=== PATIENT | male | born 1960 | race Two or more races ===

== ENCOUNTER 2018-12-06 10:55 | Emergency (ER) | payer OTHER ==
[2018-12-06] MEDS ORDERED: KETOROLAC TROMETHAMINE INJ/PF 30 MG/1 ML SDV IV ONE (11:29)
--- NOTE | 2018-12-06 11:32 | ER Document Report ---
ED Medical Screen (RME) - General Chief Complaint: Abdominal Pain Stated Complaint: ABDOMINAL PAIN Time Seen by Provider: 12/06/18 11:23 Notes: Patient says that he is having severe pain in the right lower quadrant of his abdomen. He has been having this pain for about 5 years, since he had a hernia repair and mesh implanted. He says that he was told that the surgery was "botched" and that the mesh was pressing on a nerve. He is currently in pain management in [place], and is here without any medications for pain. He says this pain has been going on this time for about a week. Points to the right lower quadrant. Has had a little bit of vomiting a little bit of diarrhea. No blood in any of that. Patient says he is having some shortness of breath. Denies any fever. PMH: Hypertension, CHF, anxiety, depression, neuropathy, cigarette smoker. TRAVEL OUTSIDE OF THE U[place] IN LAST 30 DAYS: No - Related Data Allergies/Adverse Reactions: metformin Allergy (Verified 12/06/18 11:03) Penicillins Allergy (Verified 12/06/18 11:03) Past Medical History - Past Medical History Cardiac Medical History: Reports: Hx Congestive Heart Failure, Hx Hypertension Pulmonary Medical History: Reports: Hx COPD Renal/ Medical History: Denies: Hx Peritoneal Dialysis GI Medical History: Reports: Hx Gastroesophageal Reflux Disease Psychiatric Medical History: Reports: Hx Depression Past Surgical History: Reports: Hx Abdominal Surgery - hernia, Hx Cholecystectomy Physical Exam - Vital signs Vitals: Temp Pulse Resp BP Pulse Ox 98.3 F 67 20 133/91 H 100 12/06/18 11:05 12/06/18 11:05 12/06/18 11:05 12/06/18 11:05 12/06/18 11:05 Course - Vital Signs Vital signs: Temp Pulse Resp BP Pulse Ox 98.3 F 67 20 133/91 H 100 12/06/18 11:05 12/06/18 11:05 12/06/18 11:05 12/06/18 11:05 12/06/18 11:05
[2018-12-06 12:25] LABS: APPEARANCE,URINE CLEAR; BILIRUBIN,URINE NEGATIVE (NEGATIVE); COLOR,URINE YELLOW; GLUCOSE, URINE NEGATIVE (NEGATIVE); KETONES,URINE NEGATIVE (NEGATIVE); LEUKOCYTE ESTERASE,URINE NEGATIVE (NEGATIVE); NITRITE,URINE NEGATIVE (NEGATIVE); PROTEIN,URINE NEGATIVE (NEGATIVE); URINE SPECIFIC GRAVITY 1.014; UROBILINOGEN,URINE NEGATIVE mg/dL (<2.0)
--- NOTE | 2018-12-06 13:45 | ER Document Report ---
ED General - General Chief Complaint: Abdominal Pain Stated Complaint: ABDOMINAL PAIN Time Seen by Provider: 12/06/18 11:23 Notes: Patient says that he is having severe pain in the right lower quadrant of his abdomen. He has been having this pain for about 5 years, since he had a hernia repair and mesh implanted. He says that he was told that the surgery was "botched" and that the mesh was pressing on a nerve. He is currently in pain management in [place], and is here without any medications for pain. He says this pain has been going on this time for about a couple of weeks. Points to the right lower quadrant. Has had a little bit of vomiting a little bit of diarrhea. No blood in any of that. Patient says he is having some shortness of breath. Denies any fever. TRAVEL OUTSIDE OF THE [place] IN LAST 30 DAYS: No - Related Data Allergies/Adverse Reactions: metformin Allergy (Verified 12/06/18 11:03) Penicillins Allergy (Verified 12/06/18 11:03) Past Medical History - Social History Smoking Status: Current Every Day Smoker Family History: None Patient has suicidal ideation: No Patient has homicidal ideation: No - Past Medical History Cardiac Medical History: Reports: Hx Congestive Heart Failure, Hx Hypertension Pulmonary Medical History: Reports: Hx COPD Renal/ Medical History: Denies: Hx Peritoneal Dialysis GI Medical History: Reports: Hx Gastroesophageal Reflux Disease Psychiatric Medical History: Reports: Hx Depression Past Surgical History: Reports: Hx Abdominal Surgery - hernia, Hx Cholecystectomy Review of Systems - Review of Systems Constitutional: See HPI EENT: No symptoms reported Cardiovascular: See HPI Respiratory: See HPI Gastrointestinal: See HPI Genitourinary: See HPI Male Genitourinary: No symptoms reported Musculoskeletal: No symptoms reported Skin: No symptoms reported Hematologic/Lymphatic: No symptoms reported Neurological/Psychological: No symptoms reported Physical Exam - Vital signs Vitals: Temp Pulse Resp BP Pulse Ox 98.3 F 67 20 133/91 H 100 12/06/18 11:05 12/06/18 11:05 12/06/18 11:05 12/06/18 11:05 12/06/18 11:05 - Notes Notes: PHYSICAL EXAMINATION: Reviewed vital signs and charting by RN GENERAL: Alert, interacts well. No acute distress. HEAD: Normocephalic, atraumatic. EYES: Pupils equal, round. Extraocular movements intact. ENT: Oral mucosa moist, tongue midline. NECK: Full range of motion. Supple. Trachea midline. LUNGS: Clear to auscultation bilaterally, no wheezes, rales, or rhonchi. No respiratory distress. HEART: Regular rate and rhythm. No murmur ABDOMEN: soft, obese, tender to palpation right lower quadrant. Non-distended. Bowel sounds present. EXTREMITIES: Moves all 4 extremities spontaneously. No edema, No cyanosis. PSYCH: Normal affect, normal mood. SKIN: Warm, dry, normal turgor. Diffuse macular lesions on abdomen and lower extremities. One spot consistent with folliculitis. Patient denies any history of MRSA. Has seen dermatology and was prescribed permethrin. Course - Re-evaluation Re-evalutation: 12/06/18 13:45 Overall well-appearing male in no acute distress. At interview was completing IV oral contrast. Still awaiting lab to come and draw blood work. Patient complaining of acute right lower quadrant pain that Toradol did not help. I will give him a dose of narcotic pain medication. 12/06/18 16:32 CT abdomen/pelvis with IV and oral contrast completed. No acute abdominal pathology, no evidence of incarcerated hernia, and abdominal aorta normal size no evidence of aneurysm. At this time there is no abnormal lab values conc erning for admission. Explained this to patient and he is reassured. - Vital Signs Vital signs: Temp Pulse Resp BP Pulse Ox 98.3 F 67 14 133/91 H 93 12/06/18 11:05 12/06/18 11:05 12/06/18 14:04 12/06/18 11:05 12/06/18 14:04 - Laboratory Result Diagrams: 12/06/18 13:50 12/06/18 13:50 Laboratory results interpreted by me: 12/06/18 12/06/18 13:50 13:50 WBC 12.0 H MCH 34.5 H RDW 14.3 H Sodium 134.4 L Potassium 3.1 L Chloride 91 L Carbon Dioxide 33 H Creatinine 1.43 H Est GFR (Non-Af Amer) 50 L Discharge - Discharge Clinical Impression: Abdominal pain Qualifiers: Abdominal location: right lower quadrant Qualified Code(s): R10.31 - Right lower quadrant pain Condition: Good Disposition: HOME, SELF-CARE Instructions: Abdominal Pain ([facility]) Additional Instructions: You have been seen in the Emergency Department (ED) for abdominal pain. Your evaluation did not identify a clear cause of your symptoms but was generally reassuring. Please follow up with your doctor as soon as possible regarding today's emergent visit and the symptoms that are bothering you. Return to the ED if your abdominal pain worsens or fails to improve, you develop bloody vomiting, bloody diarrhea, you are unable to tolerate fluids due to vomiting, fever greater than 101, or other symptoms that concern you.
[2018-12-06] MEDS ORDERED: HYDROMORPHONE HCL INJ/PF 2 MG/ML AMPULE IV ONE (13:46)
[2018-12-06 14:04] LABS: ABSOLUTE BASOPHILS # (AUTO) 0.1 10^3/uL (0.0-0.2); ABSOLUTE EOSINOPHILS # (AUTO) 0.5 10^3/uL (0.0-0.6); ABSOLUTE LYMPHOCYTES (AUTO) 3.1 10^3/uL (0.5-4.7); ABSOLUTE MONOCYTES (AUTO) 0.8 10^3/uL (0.1-1.4); ABSOLUTE NEUT (AUTO) 7.5 10^3/uL (1.7-8.2); BASOPHILS % (AUTO) 0.7 % (0-2); EOSINOPHILS % (AUTO) 3.9 % (0-6); HEMATOCRIT 44.8 % (37.9-51.0); LYMPHOCYTES % (AUTO) 25.6 % (13-45); MEAN CORPUSCULAR HEMOGLOBIN 34.5 pg (27.0-33.4); MEAN CORPUSCULAR HGB CONC 35.7 g/dL (32.0-36.0); MEAN CORPUSCULAR VOLUME 97 fl (80-97); MONOCYTES % (AUTO) 6.8 % (3-13); PLATELET COUNT 211 10^3/uL (150-450); RED BLOOD COUNT 4.63 10^6/uL (4.35-5.55); RED CELL DISTRIBUTION WIDTH 14.3 % (11.5-14.0); TOTAL CELLS COUNTED % (AUTO) 100 %
[2018-12-06 14:20] LABS: ALANINE AMINOTRANSFERASE 32 U/L (21-72); ALBUMIN 3.8 g/dL (3.5-5.0); ALKALINE PHOSPHATASE 71 U/L (38-126); ANION GAP 10 (5-19); ASPARTATE AMINO TRANSFERASE 22 U/L (17-59); BILIRUBIN,DIRECT 0.3 mg/dL (0.0-0.4); BILIRUBIN,TOTAL 0.8 mg/dL (0.2-1.3); BLOOD UREA NITROGEN 18 mg/dL (7-20); CALCIUM 9.8 mg/dL (8.4-10.2); CARBON DIOXIDE 33 mmol/L (22-30); CHLORIDE 91 mmol/L (98-107); GLUCOSE 107 mg/dL (75-110); LIPASE 90.6 U/L (23-300); POTASSIUM 3.1 mmol/L (3.6-5.0); SODIUM 134.4 mmol/L (137-145); TOTAL PROTEIN 6.7 g/dL (6.3-8.2)
--- NOTE | 2018-12-06 15:59 | RADIOLOGY REPORT (SQ) ---
EXAM DESCRIPTION: CT ABD/PELVIS WITH IV ORAL COMPLETED DATE/TIME: 12/06/2018 3:43 pm REASON FOR STUDY: RLQ pain COMPARISON: None. TECHNIQUE: CT scan of the abdomen and pelvis performed using helical scanning technique with dynamic intravenous contrast injection. Enteric contrast was administered. Images reviewed with lung, sof t tissue, and bone windows. Reconstructed coronal and sagittal MPR images reviewed. Delayed images fo r evaluation of the urinary system also acquired. All images stored on PACS. All CT scanners at this facility use dose modulation, iterative reconstruction, and/or weight based d osing when appropriate to reduce radiation dose to as low as reasonably achievable (ALARA). [facility]: Dose Right [facility]: CareDose [facility]: Dose Right [facility]: Teradose 4D [facility]: Spectra Analysis Instruments CONTRAST TYPE AND DOSE: contrast/concentration: Isovue 350.00 mg/ml; Total Contrast Delivered: 100.0 ml; Total Saline Delivered: 72.0 ml 100 mL IV Omnipaque 350- low osmolar. RENAL FUNCTION: BUN 18 creatinine 1.43 RADIATION DOSE: CT Rad equipment meets quality standard of care and radiation dose reduction techniq ues were employed. CTDIvol: NaN - NaN mGy. DLP: 0 mGy-cm.. LIMITATIONS: None. FINDINGS: LOWER CHEST: No significant findings. No nodules or infiltrates. LIVER: Normal size. No masses. No dilated ducts. SPLEEN: Normal size. No focal lesions. PANCREAS: No masses. No significant calcifications. No adjacent inflammation or peripancreatic fluid collections. Pancreatic duct not dilated. GALLBLADDER: Surgically absent. ADRENAL GLANDS: No significant masses or asymmetry. RIGHT KIDNEY AND URETER: No solid masses. Multiple renal cysts, largest measuring 3.9 x 3.4 cm. No significant calcifications. No hydronephrosis or hydroureter. LEFT KIDNEY AND URETER: No solid masses. Multiple renal cysts, largest measuring 4.3 x 3.8 cm. No significant calcifications. No hydronephrosis or hydroureter. AORTA AND VESSELS: No aneurysm. No dissection. Retroaortic left renal vein. Mild scattered vascular and nonvascular plaque. RETROPERITONEUM: No retroperitoneal adenopathy, hemorrhage or masses. BOWEL AND PERITONEAL CAVITY: No dilated loops of bowel. No masses or inflammatory changes. No free fluid or peritoneal masses. No free air. APPENDIX: Normal. Opacified with contrast. PELVIS: No mass. No free fluid. Normal bladder. Prostatic calcifications. ABDOMINAL WALL: No masses. No hernias. BONES: No significant or acute findings. OTHER: No other significant finding. IMPRESSION: NO SIGNIFICANT OR ACUTE FINDING IN THE ABDOMEN OR PELVIS ON CT SCAN WITH IV CONTRAST. TECHNICAL DOCUMENTATION: JOB ID: [id number] Quality ID # [id number]: Final reports with documentation of one or more dose reduction techniques (e.g., Au tomated exposure control, adjustment of the mA and/or kV according to patient size, use of iterative reconstruction technique) 2010 [employer]- All Rights Reserved Reading location - IP/workstation name: [email or web address]
[2018-12-06] MEDS ORDERED: FENTANYL CITRATE INJ/PF 100 MCG/2 ML AMPUL IV ONE (16:23)
[2018-12-06 16:47] VITALS: BP 149/87
== END 2018-12-06 16:59 | disposition home or self-care (01) ==
LOC: ER 10:55
DX: R10.31 Right lower quadrant pain (principal); F17.200 Nicotine dependence, unspecified, uncomplicated; I50.9 Heart failure, unspecified; I11.0 Hypertensive heart disease with heart failure; J44.9 Chronic obstructive pulmonary disease, unspecified; Z88.0 Allergy status to penicillin; Z90.49 Acquired absence of other specified parts of digestive tract
CPT/HCPCS: 99284; 96374; 96375; 36415; 83605; 83690; 85025; 80053; 81001; 74177; J3010; J1885; J1170

== ENCOUNTER 2018-12-16 08:32 | Emergency (ER) | payer OTHER, MEDICAID ==
[2018-12-16 09:19] LABS: ABSOLUTE BASOPHILS # (AUTO) 0.1 10^3/uL (0.0-0.2); ABSOLUTE EOSINOPHILS # (AUTO) 0.1 10^3/uL (0.0-0.6); ABSOLUTE LYMPHOCYTES (AUTO) 1.6 10^3/uL (0.5-4.7); ABSOLUTE MONOCYTES (AUTO) 0.6 10^3/uL (0.1-1.4); BASOPHILS % (AUTO) 0.8 % (0-2); HEMATOCRIT 47.8 % (37.9-51.0); HEMOGLOBIN 17.1 g/dL (13.5-17.0); LYMPHOCYTES % (AUTO) 13.6 % (13-45); MEAN CORPUSCULAR HEMOGLOBIN 34.4 pg (27.0-33.4); MEAN CORPUSCULAR HGB CONC 35.8 g/dL (32.0-36.0); MEAN CORPUSCULAR VOLUME 96 fl (80-97); MONOCYTES % (AUTO) 5.4 % (3-13); PLATELET COUNT 283 10^3/uL (150-450); RED BLOOD COUNT 4.98 10^6/uL (4.35-5.55); RED CELL DISTRIBUTION WIDTH 14.6 % (11.5-14.0); SEGMENTED NEUTROPHILS % (AUTO) 79.2 % (42-78); TOTAL CELLS COUNTED % (AUTO) 100 %; WHITE BLOOD COUNT 11.4 10^3/uL (4.0-10.5)
[2018-12-16 09:34] LABS: ALANINE AMINOTRANSFERASE 20 U/L (21-72); ALBUMIN 3.9 g/dL (3.5-5.0); ALKALINE PHOSPHATASE 84 U/L (38-126); ANION GAP 11 (5-19); ASPARTATE AMINO TRANSFERASE 29 U/L (17-59); BILIRUBIN,DIRECT 0.4 mg/dL (0.0-0.4); BILIRUBIN,TOTAL 1.2 mg/dL (0.2-1.3); BLOOD UREA NITROGEN 14 mg/dL (7-20); CALCIUM 10.2 mg/dL (8.4-10.2); CARBON DIOXIDE 28 mmol/L (22-30); CHLORIDE 96 mmol/L (98-107); GLUCOSE 137 mg/dL (75-110); POTASSIUM 3.2 mmol/L (3.6-5.0); SODIUM 134.7 mmol/L (137-145); TOTAL PROTEIN 7.6 g/dL (6.3-8.2)
--- NOTE | 2018-12-16 09:35 | ER Document Report ---
ED General - General Chief Complaint: Chest Pain Stated Complaint: CHEST PAIN Time Seen by Provider: 12/16/18 09:07 TRAVEL OUTSIDE OF THE [place] IN LAST 30 DAYS: No - HPI Notes: Patient is a 58-year-old male that presents to the emergency department for chief complaint of chest tightness and Klonopin withdrawal. Patient reports he has been in the area since September. Because of transportation issues he is unable to return to his home in [place]. He states he has been on Klonopin for years for his anxiety and history of alcoholism. He states that he realized he was unable to get the Klonopin refilled since he could go back to [place] and began weaning himself off of it. He has been weaning for the last 3 weeks and has not had any in the last 3 days. He reports palpitations, nausea, intermittent vomiting, chest tightness and shortness of breath since getting off the medications. He does state he feels very anxious. He denies any aggravating or relieving factors to his symptoms. He states the chest tightness has been constant without resolution for the past 3 days. He denies history of [place]. He had a normal cardiac stress test about 15 years ago. Past Medical History: Anxiety, history of alcoholism, alcohol induced neuropathy, congestive heart failure, hypertension Past Surgical History: Right inguinal hernia Social History: History of alcoholism currently sober, denies drug use, daily tobacco. Family History: Reviewed and noncontributory for presenting illness Allergies: Reviewed, see documented allergy list. REVIEW OF SYSTEMS: CONSTITUTIONAL : No fever No chills No diaphoresis No recent illness EENT: No vision changes No congestion No sore throat CARDIOVASCULAR: chest pain palpitations RESPIRATORY: shortness of breath No cough No difficulty breathing GASTROINTESTINAL: No abdominal pain nausea vomiting No diarrhea GENITOURINARY: No dysuria No hematuria No difficulty urinating MUSCULOSKELETAL: No back pain No leg pain No arm pain SKIN: No rashes No lesions LYMPHATIC: No swollen, enlarged glands. NEUROLOGICAL: No lightheadedness No headache No weakness No paresthesias PSYCHIATRIC: anxiety No depression PHYSICAL EXAMINATION: Vital signs reviewed, nursing noted reviewed. GENERAL: Well-appearing, obese and in no acute distress. HEAD: Atraumatic, normocephalic. EYES: Eyes appear normal, extraocular movements intact, sclera anicteric, conjunctiva are normal. ENT: nares patent, oropharynx clear without exudates. Moist mucous membranes. NECK: Normal range of motion, supple without lymphadenopathy LUNGS: Breath sounds clear to auscultation bilaterally and equal. No wheezes rales or rhonchi. HEART: Regular rate and rhythm without murmurs ABDOMEN: Protuberant, soft, nontender, normoactive bowel sounds. No rebound, guarding, or rigidity. No masses appreciated. EXTREMITIES: Nontender, good range of motion, no pitting or edema. NEUROLOGICAL: No focal neurological deficits. Moves all extremities spontaneously Motor and sensory grossly intact on exam. PSYCH: Anxious SKIN: Warm, Dry, normal turgor, no rashes or lesions noted on exposed skin - Related Data Allergies/Adverse Reactions: metformin Allergy (Verified 12/16/18 11:13) Penicillins Allergy (Verified 12/16/18 11:13) Past Medical History - Social History Smoking Status: Current Every Day Smoker Family History: None - Past Medical History Cardiac Medical History: Reports: Hx Congestive Heart Failure, Hx Hypertension Pulmonary Medical History: Reports: Hx COPD Renal/ Medical History: Denies: Hx Peritoneal Dialysis GI Medical History: Reports: Hx Gastroesophageal Reflux Disease Psychiatric Medical History: Reports: Hx Depression Past Surgical History: Reports: Hx Abdominal Surgery - hernia, Hx Cholecystect [place] Physical Exam - Vital signs Vitals: Temp Pulse Resp BP 98.5 F 58 L 15 156/89 H 12/16/18 08:54 12/16/18 08:54 12/16/18 08:54 12/16/18 08:54 Course - Re-evaluation Re-evalutation: 12/16/18 10:22 Vitals reviewed. Nursing notes reviewed. Patient is afebrile and nontoxic in appearance. His symptoms have been constant without resolution for the last few days. His initial cardiac workup is negative. EKG shows no acute ischemic changes. Patient symptoms are likely related to his Klonopin withdrawal however he has not had any in the last 3 days and has been tapering down appropriately. I do not feel he is at risk currently of acute life-threatening withdrawal symptoms. Patient was given Vistaril and Zofran for further symptomatic management. delta troponin will be obtained 12/16/18 14:42 Patient's delta troponin is negative. I do feel his symptoms are likely related to anxiety and benzodiazepine withdrawal. I feel he is medically cleared. Patient's did call the emergency room very concerned for his mental health. She states that he called while he was in this facility stating that he was going to kill himself if she did not take him back. When I confronted him on this he states that "she has many years and cannot hear anything". He denies stating that he was suicidal. He does agree that he has been depressed and he is needing medications. When I asked him about the incident where he tried to kill himself with carbon monoxide he did acknowledge that incident and knew what I was talking about but then stated that he never attempted to kill himself with carbon monoxide. I am concerned that he is expressing suicidal ideations to his and is not being forthcoming with me. He will be placed on 24-hour IVC petition for further psych evaluation. Laboratory 12/16/18 12/16/18 12/16/18 08:50 08:50 08:50 WBC 11.4 H RBC 4.98 Hgb 17.1 H Hct 47.8 MCV 96 MCH 34.4 H MCHC 35.8 RDW 14.6 H Plt Count 283 Seg Neutrophils % 79.2 H Lymphocytes % 13.6 Monocytes % 5.4 Eosinophils % 1.0 Basophils % 0.8 Absolute Neutrophils 9.0 H Absolute Lymphocytes 1.6 Absolute Monocytes 0.6 Absolute Eosinophils 0.1 Absolute Basophils 0.1 Sodium 134.7 L Potassium 3.2 L Chloride 96 L Carbon Dioxide 28 Anion Gap 11 BUN 14 Creatinine 1.18 Est GFR ( Amer) > 60 Est GFR (Non-Af Amer) > 60 Glucose 137 H Calcium 10.2 Total Bilirubin 1.2 Direct Bilirubin 0.4 Neonat Total Bilirubin Not Reportable Neonat Direct Bilirubin Not Reportable Neonat Indirect Bili Not Reportable AST 29 ALT 20 L Alkaline Phosphatase 84 Troponin I < 0.012 Total Protein 7.6 Albumin 3.9 Salicylates Acetaminophen 12/16/18 12/16/18 12:50 12:50 WBC RBC Hgb Hct MCV MCH MCHC RDW Plt Count Seg Neutrophils % Lymphocytes % Monocytes % Eosinophils % Basophils % Absolute Neutrophils Absolute Lymphocytes Absolute Monocytes Absolute Eosinophils Absolute Basophils Sodium Potassium Chloride Carbon Dioxide Anion Gap BUN Creatinine Est GFR ( Amer) Est GFR (Non-Af Amer) Glucose Calcium Total Bilirubin Direct Bilirubin Neonat Total Bilirubin Neonat Direct Bilirubin Neonat Indirect Bili AST ALT Alkaline Phosphatase Troponin I < 0.012 Total Protein Albumin Salicylates < 1.0 L Acetaminophen < 10 L Chest X-Ray 12/16/18 09:08 IMPRESSION: Mild cardiomegaly. - Vital Signs Vital signs: Temp Pulse Resp BP Pulse Ox 98.5 F 58 L 15 156/89 H 12/16/18 08:54 12/16/18 08:54 12/16/18 08:54 12/16/18 08:54 - Laboratory Result Diagrams: 12/16/18 08:50 12/16/18 08:50 Laboratory results interpreted by me: 12/16/18 12/16/18 12/16/18 08:50 08:50 12:50 WBC 11.4 H Hgb 17.1 H MCH 34.4 H RDW 14.6 H Seg Neutrophils % 79.2 H Absolute Neutrophils 9.0 H Sodium 134.7 L Potassium 3.2 L Chloride 96 L Glucose 137 H ALT 20 L Salicylates < 1.0 L Acetaminophen < 10 L - EKG Interpretation by Me Additional EKG results interpreted by me: 12/16/18 10:23 Interpreted by myself [id number]: Sinus bradycardia, rate 54, normal axis, no ectopy, no ST elevation, dif fuse T wave flattening 12/16/18 13:12 Interpreted by myself 09/24/2001: Normal sinus rhythm, rate 60, normal axis, no ectopy, no ST elevation Discharge - Discharge Clinical Impression: Suicidal ideation Chest pain Qualifiers: Chest pain type: unspecified Qualified Code(s): R07.9 - Chest pain, unspecified Condition: Stable
[2018-12-16] MEDS ORDERED: POTASSIUM CHLORIDE 10 MEQ CAPSULE.ER PO ONE (09:45)
--- NOTE | 2018-12-16 09:55 | RADIOLOGY REPORT (SQ) ---
EXAM DESCRIPTION: CHEST SINGLE VIEW COMPLETED DATE/TIME: 12/16/2018 9:23 am REASON FOR STUDY: chest pain COMPARISON: None. EXAM PARAMETERS: NUMBER OF VIEWS: One view. TECHNIQUE: Single frontal radiographic view of the chest acquired. RADIATION DOSE: NA LIMITATIONS: None. FINDINGS: LUNGS AND PLEURA: No opacities, masses or pneumothorax. No pleural effusion. MEDIASTINUM AND HILAR STRUCTURES: No masses. Contour normal. HEART AND VASCULAR STRUCTURES: Mild cardiomegaly BONES: No acute findings. HARDWARE: None in the chest. OTHER: No other significant finding. IMPRESSION: Mild cardiomegaly. TECHNICAL DOCUMENTATION: JOB ID: [id number] [employer]- All Rights Reserved Reading location - IP/workstation name: [email or web address]
[2018-12-16] MEDS ORDERED: ONDANSETRON 4 MG TAB.RAPDIS PO ONE (10:18)
[2018-12-16] MEDS ORDERED: HYDROXYZINE PAMOATE 50 MG CAPSULE PO ONE (10:18)
[2018-12-16 14:35] LABS: ACETAMINOPHEN < 10 ug/mL (10-30); SALICYLATE < 1.0 mg/dL (2.0-20.0)
[2018-12-16] MEDS: CITALOPRAM HYDROBROMIDE 20 MG TABLET PO SCH (17:15)
[2018-12-16] MEDS: BUSPIRONE HCL 10 MG TABLET PO SCH (17:15)
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
--- NOTE | 2018-12-16 21:27 | EKG REPORT ---
SEVERITY:- ABNORMAL ECG - SINUS RHYTHM PROBABLE INFERIOR INFARCT, AGE INDETERMINATE : Confirmed by: Susan Fournier MD 16-Dec-2018 21:26:38
--- NOTE | 2018-12-16 21:27 | EKG REPORT ---
SEVERITY:- NORMAL ECG - SINUS RHYTHM : Confirmed by: Susan Fournier MD 16-Dec-2018 21:26:33
[2018-12-16 22:44] LABS: APPEARANCE,URINE CLEAR; BILIRUBIN,URINE NEGATIVE (NEGATIVE); COLOR,URINE YELLOW; GLUCOSE, URINE NEGATIVE (NEGATIVE); KETONES,URINE NEGATIVE (NEGATIVE); LEUKOCYTE ESTERASE,URINE NEGATIVE (NEGATIVE); NITRITE,URINE NEGATIVE (NEGATIVE); PROTEIN,URINE 30 mg/dL (NEGATIVE); URINE SPECIFIC GRAVITY 1.019
[2018-12-16 22:59] LABS: URINE AMPHETAMINES SCREEN NEGATIVE; URINE BARBITURATES SCREEN NEGATIVE; URINE BENZODIAZEPINES SCREEN NEGATIVE; URINE COCAINE SCREEN NEGATIVE; URINE MARIJUANA (THC) SCREEN UNCONFIRMED POSITIVE; URINE METHADONE SCREEN NEGATIVE; URINE PHENCYCLIDINE SCREEN NEGATIVE
[2018-12-17 03:23] VITALS: BP 143/81
[2018-12-17] MEDS ORDERED: MAG HYDROX/AL HYDROX/SIMETH SUSP 30 ML UDCUP PO ONE (05:15)
--- NOTE | 2018-12-17 09:59 | ER Document Report ---
Doctor's Note Notes: 12/17/18 09:57 Patient seen and evaluated. He is resting comfortably. He states that he does feel better than he did yesterday. He states the medications seem to be helping. He has not had any new concerning chest pains. Plan for patient be discharged home today to the care of his son with outpatient therapy. He is not actively suicidal. He does appear less anxious than he did yesterday. Patient in agreement with plan of care for discharge and outpatient therapy. He is aware he can return to the emergency room at any point for further care.
[2018-12-17] MEDS: BUSPIRONE HCL 10 MG TABLET PO SCH (10:13)
[2018-12-17] MEDS: CITALOPRAM HYDROBROMIDE 20 MG TABLET PO SCH (10:13)
--- NOTE | 2018-12-17 10:13 | PSYCHOLOGICAL NOTE ---
Psych Note - Psych Note Date seen by psych provider: 12/17/18 Time seen by psych provider: 08:10 Psych Note: Reason for Consult: Suicidal ideation Patient is a 58-year-old male that presents to the emergency department for chief complaint of chest tightness and Klonopin withdrawal. Patient's family reported concern the patient was making suicidal comments. Check in conducted with patient Patient reports he is still "shocked by the turn of events." He denies thoughts of wanting to harm himself. He states he did tell his that his withdrawal is killing him. He confirms he and his are currently however states that it is not a legal separation yet. He reports that his is hard of hearing and feels that she may have misunderstood him when he stated that the withdrawals are killing him. He reports that if he was still in [place] this would not have been going on because he would still have providers and he did have his prescription. Clinician and patient discussed in depth medication prescriptions that are controlled. Patient reports that he does not want any prescriptions for benzodiazepines and is willing to continue trying to use the BuSpar. He states that he had not worked in the past however feels optimistic that it will this time. When asked if he wants further assistance with his withdrawal symptoms such as a detox he declined stating "I have done this before and I am now over the hump now... I just want to go home with what little dignity I have left so I can shower and sleep in my own bed." She again denies thoughts of wanting to harm himself. Mood is euthymic with congruent affect. Patient eye contact was well-maintained. Medication recommendations made by the psychiatric medical provider, Dr. Mark MD., includes: Add Buspar 10MG twice a day for anxiety/calming effect/anxiolytic without addictive properties/depression/anxiety Add Celexa 20MG daily for depression/anxiety Diagnosis: Withdrawal; benzodiazepine Unspecified depressive disorder; connected to recent separation from Impression/Plan: Patient is recommended for rescind of IVC and is cleared from acute psychiatric services. Patient denies current suicidal ideation and states that he never reported that he wanted to kill himself. He states that his must have misunderstood him. He reports that he has been having difficulties going through withdrawal from his medications for his anxiety. He states that this is happened previously and currently states he has no interest in continuing on those medications. He is open to continuing medication recommendations that he was started on here during his [facility] visit. He requests resources for the local area so he can set up primary care provider; this information was provided to the patient. Patient is recommended to follow-up with outpatient mental health services in the form of therapeutic and medication management. Dr. Catherine was consulted to care management of this patient; attending physician is agreement with recommendations and disposition.
== END 2018-12-17 10:43 | disposition home or self-care (01) ==
LOC: ER 08:32
DX: F13.239 Sedative, hypnotic or anxiolytic dependence with withdrawal, unspecified (principal); F10.20 Alcohol dependence, uncomplicated; F41.9 Anxiety disorder, unspecified; T42.4X6A Underdosing of benzodiazepines, initial encounter; Z91.128 Patient's intentional underdosing of medication regimen for other reason; Z91.14 Patient's other noncompliance with medication regimen; F32.9 Major depressive disorder, single episode, unspecified; R45.851 Suicidal ideations; I11.9 Hypertensive heart disease without heart failure; J44.9 Chronic obstructive pulmonary disease, unspecified; R00.2 Palpitations; R07.89 Other chest pain; R11.2 Nausea with vomiting, unspecified; R06.02 Shortness of breath; E66.9 Obesity, unspecified; Z88.8 Allergy status to other drugs, medicaments and biological substances; Z88.0 Allergy status to penicillin; R00.1 Bradycardia, unspecified; Z63.5 Disruption of family by separation and divorce
CPT/HCPCS: 93005; 99285; 36415; 80307 ×3; 85025; 80053; 81001; 84484; 71045; 93010; S0119